=== PATIENT | male | born 1955 | race Caucasian/White ===

== ENCOUNTER 2019-09-24 04:09 | Inpatient (IN) ==
--- NOTE | 2019-09-19 07:59 | EKG Report ---
Test Performed on : 09/19/2019 07:50:53 AM Test Reason : PAT Blood Pressure : / mmHG Vent. Rate : 059 BPM Atrial Rate : 059 BPM P-R Int : 144 ms QRS Dur : 082 ms QT Int : 406 ms P-R-T Axes : 052 079 077 degrees QTc Int : 401 ms Sinus bradycardia. Otherwise normal ECG No previous ECGs available Unconfirmed Result
[2019-09-19 08:04] LABS: URINE SOURCE CLEAN CATCH
[2019-09-19 08:20] LABS: BASO# 0.03 X1000 (0.0-0.2); BASO% 0.5 % (0.0-0.8); EOS# 0.09 X1000 (0.0-0.7); EOS% 1.5 % (0.0-10.0); HEMATOCRIT 47.3 % (42.0-52.0); HEMOGLOBIN 15.9 g/dL (14.0-18.0); LYMPH# 1.28 X1000 (1.2-3.4); LYMPH% 21.6 % (20.5-51.1); MCH 27.8 PG (27-31); MCHC 33.6 g/dL (33-37); MCV 82.8 FL (81-99); MONO# 0.54 X1000 (0.11-0.59); MONO% 9.1 % (1.7-9.3); MPV 9.5 FL (7.4-10.4); NEUT# 3.98 X1000 (1.4-6.5); NEUT% 67.3 % (42.2-75.2); PLT 228 X1000 (130-400); RBC 5.71 XMIL (4.7-6.1); RDW 13.2 % (11.5-14.5); WBC 5.92 X1000 (4.8-10.8)
[2019-09-19 08:21] LABS: BILIRUBIN URINE NEGATIVE (NEGATIVE); BLOOD URINE NEGATIVE (NEGATIVE); COLOR YELLOW; GLUCOSE URINE NEGATIVE (NEGATIVE); KETONE URINE NEGATIVE (NEGATIVE); LEUKOCYTES URINE NEGATIVE (NEGATIVE); NITRITE URINE NEGATIVE (NEGATIVE); PROTEIN URINE NEGATIVE (NEGATIVE); SP GRAVITY URINE 1.015; TURBIDITY URINE CLEAR (CLEAR); UROBILINOGEN URINE NORMAL (NORMAL)
[2019-09-19 08:23] LABS: INR 1.02; PROTIME 13.5 Seconds (11.0-16.0); UR EPITHELIAL CELLS <10 /HPF (<10); URINE BACTERIA NEGATIVE /HPF; URINE RBC <10 /HPF (<10); URINE WBC <10 /HPF (<10)
[2019-09-19 08:24] LABS: PTT 28.8 Seconds (22.3-41.8)
[2019-09-19 08:29] LABS: HEMOGLOBIN A1C 5.6 % (4.8-6.0)
[2019-09-19 08:34] LABS: AGAP 11; ALBUMIN 4.1 g/dL (3.5-5.0); BUN 16 mg/dL (8-22); CALCIUM 9.2 mg/dL (8.8-10.2); CHLORIDE 101 mmol/L (98-107); COSMO 278; CREATININE 1.1 mg/dL (0.7-1.2); ESTIMATED GFR > 60; GLUCOSE 94 mg/dL (70-104); POTASSIUM 4.6 mmol/L (3.5-5.1); SODIUM 139 mmol/L (136-145); TCO2 27 mmol/L (25-35)
[2019-09-24] MEDS ORDERED: PEPCID ONE (08:25)
[2019-09-24] MEDS ORDERED: COLACE ONE (08:25)
[2019-09-24] MEDS ORDERED: REGLAN ONE (08:25)
[2019-09-24] MEDS ORDERED: CELEBREX ONE (08:26)
[2019-09-24] MEDS ORDERED: LYRICA ONE (08:26)
[2019-09-24] MEDS ORDERED: LR 1,000 ML ONE (08:26)
[2019-09-24] MEDS ORDERED: KEFZOL 1 GM/D5W 2 GM/100 ML IVPB ONE (08:26)
[2019-09-24] MEDS ORDERED: TORADOL ONE (09:57)
[2019-09-24] MEDS ORDERED: CYKLOKAPRON 1,000 MG/NS 1,000 MG/100 ML IVPB ONE (09:57)
[2019-09-24] MEDS ORDERED: SODIUM CHLORIDE 0.9% ONE (09:57)
[2019-09-24] MEDS ORDERED: MARCAINE 0.25% PF ONE (09:57)
[2019-09-24] MEDS ORDERED: DURAMORPH ONE (09:57)
[2019-09-24] MEDS ORDERED: EXPAREL 1.3% ONE (09:58)
[2019-09-24] MEDS ORDERED: DIPRIVAN 1% ONE ×4 (10:18→13:24)
[2019-09-24] MEDS ORDERED: DECADRON ONE (10:19)
[2019-09-24] MEDS ORDERED: XYLOCAINE-MPF 2% ONE (10:19)
[2019-09-24] MEDS ORDERED: ZOFRAN ONE (10:19)
[2019-09-24] MEDS ORDERED: VERSED ONE (10:22)
[2019-09-24] MEDS ORDERED: FENTANYL ONE (10:34)
[2019-09-24] MEDS ORDERED: OFIRMEV 1000 MG/ISOTONIC SOLN 1,000 MG/100 ML BOTTLE ONE (11:26)
[2019-09-24] MEDS ORDERED: OXY IR ONE (14:40)
[2019-09-24] MEDS ORDERED: OXY IR PO PRN ×2 (14:45)
[2019-09-24] MEDS ORDERED: MILK OF MAGNESIA PO PRN (14:45)
[2019-09-24] MEDS ORDERED: MORPHINE IV PRN ×3 (14:45)
[2019-09-24] MEDS ORDERED: ZOFRAN IV PRN (14:45)
[2019-09-24] MEDS: NS 1,000 ML ONE ×2 (15:30→20:03)
[2019-09-24] MEDS: NS 1,000 ML IV SCH (15:30)
[2019-09-24] MEDS ORDERED: CYKLOKAPRON 1,000 MG in NS 100 ML IV ONE (16:40)
--- NOTE | 2019-09-24 16:48 | OPERATIVE NOTE ---
PROCEDURE DATE: 09/24/2019 PREOPERATIVE DIAGNOSIS: Left hip degenerative joint disease. POSTOP DIAGNOSIS: Left hip degenerative joint disease. PROCEDURE PERFORMED: Left total hip arthroplasty using [facility] size 56 hemispherical shell with two 6.5 cancellous screws of 25 mm and 20 mm, 56 mm diameter liner a 56, a size 7 standard offset stem with a -4 neck length ceramic head. ANESTHESIA: Spinal. SURGEON: Prosper Cox MD. TURNING MACHINE SET UP OPERATOR: Blayne. COMPLICATIONS: None. BLOOD LOSS: Minimal. DESCRIPTION OF PROCEDURE: The patient was brought to the operative suite and placed in the supine position. After successful administration of spinal anesthesia, patient was placed on the OSI table in the usual position for left hip then left hip was prepped and draped in usual sterile fashion. A longitudinal incision made beginning 3 cm distal and 3 cm lateral to the anterior superior iliac spine seen distally and slightly laterally 8 cm, dissected sharply through skin and subcutaneous tissue down tensor fascia, tensor fascia was incised and dissected bluntly down deep tensor fascia, deep tensor fascia was incised and circumflex vessels electrocauterized exposing the anterior capsule. T-capsulotomy was performed exposing the femoral neck. Femoral neck cut was made with oscillating saw. Femoral head was removed with a power corkscrew. The labrum was resected. The acetabulum was serially reamed to 56 to accept a 56 cup. The 56 cup was driven into place in the proper amount inclination, anteversion. One of the screws when we drilled and placed stripped. We had to remove the screw and the cup then a new cup was placed after bone grafting from the femoral head the hole where the stripped screw was and then the new cup was driven into place again in the proper amount inclination and anteversion. Once it was verified, a 20 mm screw was placed posteriorly superiorly and a 25 mm was placed superiorly. Excellent placement of the cup and excellent purchase screws was obtained. The liner was locked on the shell. Attention was then directed to the femur was externally rotated, extended, adducted, and elevated out of the wound with the hook on the OSI bed. The lateral neck was rongeured and used the entry broach, the rat-tail file and then because his canal was so tight we use a ball-tipped guidewire and flexible reamers to ream to 8.5 mm then the canal was serially broached to a size 7. A size 7 standard offset was found to be good fit and fill of the stem and offset and leg length and stability the hip. The trial was then removed. That was with a -4 length. The definitive stem was then locked onto the femur and the -4 ceramic head was locked on the Doherty taper and hip was again reduced. It was again found to be in excellent position. The hip was copiously infiltrated with Exparel including the posterior capsule, anterior capsule, anterior musculature, subcutaneous tissue. The anterior capsule was repaired with 0 V-Loc. The hip was copiously irrigated with normal saline containing irrigant and Vashe irrigation. The tensor fascia was closed with a 0 V-Loc. The skin edge approximated with 2-0 Vicryl. Skin was closed with a 4-0 Monocryl and Prineo and sterile dressing applied. The patient tolerated the procedure well without complication. At the end the procedure, all counts correct x2. The patient was transferred to recovery room in stable condition. cc: Prosper Cox MD MTDD
[2019-09-24] MEDS: TYLENOL PO SCH ×2 (18:12→20:51)
[2019-09-24] MEDS: ULTRAM PO SCH ×2 (18:12→20:52)
[2019-09-24] MEDS: KEFZOL 2 GM/D5W 2 GM/50 ML IVPB IV SCH (18:13)
[2019-09-24] MEDS: COLACE PO SCH (20:51)
[2019-09-24] MEDS: CELEBREX PO SCH (20:51)
[2019-09-24] MEDS: PERIDEX MT SCH (20:51)
[2019-09-24] MEDS: LYRICA PO SCH (20:52)
[2019-09-25] MEDS: NS 1,000 ML IV SCH (03:32)
[2019-09-25] MEDS: KEFZOL 2 GM/D5W 2 GM/50 ML IVPB IV SCH (03:32)
[2019-09-25] MEDS: TYLENOL PO SCH ×2 (03:32→09:36)
[2019-09-25] MEDS: ULTRAM PO SCH ×2 (03:33→09:28)
[2019-09-25] MEDS ORDERED: XARELTO PO SCH (06:00)
[2019-09-25 06:53] LABS: HEMATOCRIT 37.1 % (42.0-52.0); HEMOGLOBIN 12.3 g/dL (14.0-18.0)
[2019-09-25 07:22] LABS: AGAP 11; BUN 17 mg/dL (8-22); CALCIUM 8.5 mg/dL (8.8-10.2); CHLORIDE 102 mmol/L (98-107); COSMO 276; CREATININE 1.1 mg/dL (0.7-1.2); ESTIMATED GFR > 60; GLUCOSE 137 mg/dL (70-104); POTASSIUM 4.7 mmol/L (3.5-5.1); SODIUM 136 mmol/L (136-145); TCO2 23 mmol/L (25-35)
[2019-09-25] MEDS ORDERED: SALINE LOCK IV FLUID XX ONE (07:42)
[2019-09-25] MEDS ORDERED: PEPCID PO SCH (09:00)
[2019-09-25] MEDS ORDERED: DECADRON IV ONE (09:00)
[2019-09-25] MEDS: CELEBREX PO SCH (09:26)
[2019-09-25] MEDS: PERIDEX MT SCH (09:28)
[2019-09-25] MEDS: COLACE PO SCH (09:28)
[2019-09-25] MEDS: LYRICA PO SCH (09:28)
[2019-09-25 11:53] VITALS: BP 138/72
--- NOTE | 2019-09-26 10:57 | DISCHARGE SUMMARY ---
ADMISSION DATE: 09/24/2019 DISCHARGE DATE: 09/25/2019 DISCHARGE DIAGNOSIS: Left hip degenerative joint disease, status post left anterior total hip arthroplasty. DISCHARGE MEDICATIONS: See discharge medication list. DISPOSITION: The patient was discharged home with outpatient physical therapy. Instructed to return for any signs or symptoms of infection or deep venous thrombosis. Instructed to return to see Dr. Cox next Tuesday. HOSPITAL COURSE: On the day of admission, the patient underwent a left anterior total hip arthroplasty. His postoperative course was unremarkable. At discharge, he is afebrile, tolerating a regular diet, and ambulating well with physical therapy. His wound is clean, dry, and intact without sign of infection. He has some mild appropriate swelling. He has no sign of DVT. He is discharged home in stable condition. He was instructed to follow up as described above. cc: Prosper Cox MD
== END 2019-09-25 14:19 | disposition home health service (06) | DRG 470 ==
LOC: SURHOLD 04:09 → 4N 10:28
PROVIDERS: ADMIT Orthopaedic Surgery; ATTEND Orthopaedic Surgery